=== PATIENT | male | born 1955 | race Caucasian/White ===

== ENCOUNTER → 2018-11-20 | Day surgery (SDC) | payer OTHER ==
[~2018-11-20] MED LIST: ACCUNEB SO1.25 MG/1 INH; CELEXA40 MG PO; COMBIVENT INH; COUMADIN 5 MG TA5 M1 PO; COUMADIN7.5 MG PO; DALIRESP500 MCG PO; FLOMAX0.4 MG PO; LIPITOR40 MG PO; LOPRESSOR25 PO; NORCO 5-325 TA1 EACH PO; PREDNISONE 5 MG5 M1 PO; PROAIR HFA8.5 GM INH; SINGULAIR 10 MG10 M1 PO; XANAX 0.5 MG0.5 MG PO
[2018-11-20 09:53] LABS: HEMATOCRIT 40.9 % (42.0-52.0); HEMOGLOBIN 13.8 gm/dL (14.0-18.0); MCH 28.7 pg (26.0-34.0); MCHC 33.7 g/dL (28.0-37.0); MCV 85.1 fL (80.0-100.0); MPV 7.7 fl. (7.2-11.1); RBC 4.8 mil/uL (4.50-6.00); RDW-CV 14.6 % (10.5-14.5); WBC 8.3 thou/uL (4.0-11.0)
[2018-11-20 10:00] LABS: CREATININE 0.6 mg/dL (0.6-1.3); POTASSIUM 3.9 mmol/L (3.5-5.1)
[2018-11-20 10:06] LABS: ALBUMIN 3.8 g/dL (3.4-5.0); TOTAL BILIRUBIN 0.7 mg/dL (<0.1-1.0); TOTAL PROTEIN 6.6 g/dL (6.4-8.2)
--- NOTE | 2018-11-20 16:17 | EKG ---
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 : 1955 Requested By: Yanick Livingston Order Number: [id number] Micha MD: Federico Best Measurements Intervals [place] Rate: 87 P: 2 CO: 103 QRS: 26 QRSD: 116 T: 71 QT: 394 QTc: 474 Interpretive Statements Sinus rhythm Ventricular premature complex Short CO interval Delayed R-wave progression Nonspecific intraventricular conduction delay Borderline low voltage, extremity leads No previous ECG available for comparison Electronically Signed On 11-20-2018 16:17:44 CDT by Federico Best [email or web address] <ELECTRONICALLY SIGNED> By: Federico Best MD, [facility] 11/20/18 1617 7 Federico Best MD, FACC /EPI
--- NOTE | 2018-11-21 18:06 | PATH ---
[address] [address] PATHOLOGY RPT PROCEDURE Name: GAB MORENO Room: [facility]#: [id number] Admission: 11/20/18 Date of : 59 Discharge: Report #: [id number] Path Case #: [id number] [facility] Accession Number: [id number] . 01 Material submitted: . PART A: cecum - CECAL POLYP PART B: colon - PROXIMAL TRANSVERSE COLON POLYP. Modifiers: proximal, transverse . 01 Clinical history: . Positive fecal occult blood test . 02 Diagnosis: A. Cecal polyp: - Tubular adenoma, negative for high-grade dysplasia. . B. Proximal transverse colon polyp: - Fragmented large tubular adenoma, negative for high-grade dysplasia. (TURNER:pit; 11/21/2018) QTP 11/21/2018 1513 Local . 02 Electronically signed: . Aubrey Ashley MD, Pathologist NPI- [id number] . 01 Gross description: . A. Received in formalin labeled "Gab Moreno, cecal polyp," are 2 segments of gomez soft tissue measuring 0.5 x 0.2 x 0.1 cm in aggregate dimensions and ranging from 0.2 to 0.3 cm in maximum dimension. The specimen is submitted entirely in cassette A1. . B. Received in formalin labeled "Gab Moreno, proximal transverse colon polyp," is a 2.5 x 2.4 x 1.5 cm polypoid piece of gomez soft tissue. The margin is inked and the tissue is sectioned perpendicular to the margin and submitted entirely in cassettes B1-B5. Additionally received in the same container is a 1.6 x 1.6 x 1.5 cm polypoid piece of gomez soft tissue. The margin is inked and the tissue is sectioned perpendicular to the margin and entirely submitted in cassettes B6-B8. Also received in the container is a 2.0 x 1.1 x 1.3 cm polypoid piece of gomez soft tissue. The presumed margin is inked and the specimen is sectioned perpendicular to the margin and entirely submitted in cassettes B9-B11. (TSD; 11/20/2018) TOB/TOB 11/21/2018 [facility]2 Local . 02 Pathologist provided ICD-10: D12.0, D12.3 . 02 [facility] [place] [address] PATHOLOGY RPT PROCEDURE Name: GAB MORENO Room: [facility]#: [id number] Admission: 11/20/18 Date of : 59 Discharge: Report #: [id number] Path Case #: [id number] Specimen Comment: A courtesy copy of this report has been sent to Specimen Comment: [phone], . Specimen Comment: Report sent to / DR HERNÁNDEZ Performed at: [address], [place], [place] [id number] MD Mack Hernandez MD Phone: [phone] Performed at: 02 [facility] [address], [place], [place] [id number] MD Aubrey Ashley MD Phone: [phone]
[2018-11-22 02:06] LABS: HEPATITIS B SURFACE AG Negative (Negative)
== END | disposition home or self-care (01) ==
LOC: M.SUR 07:31
PROVIDERS: Anesthesiology; Internal Medicine Gastroenterology
DX: Z12.11 Encounter for screening for malignant neoplasm of colon (principal); D12.0 Benign neoplasm of cecum; D12.3 Benign neoplasm of transverse colon; K57.30 Diverticulosis of large intestine without perforation or abscess without bleeding; K64.4 Residual hemorrhoidal skin tags; B17.9 Acute viral hepatitis, unspecified; J44.9 Chronic obstructive pulmonary disease, unspecified; E11.9 Type 2 diabetes mellitus without complications; Z79.899 Other long term (current) drug therapy; Z79.01 Long term (current) use of anticoagulants

== ENCOUNTER 2018-12-01 13:34 | Inpatient (IN) | payer OTHER ==
[~2018-12-01] VITALS: Ht 175.3 cm; Wt 78.1 kg
--- NOTE | ~2018-12-01 | PROC ---
[address] [address] PROCEDURE REPORT Name: JASPER TAPIA Room: [address] IN ..#: [id number] Admission: 12/01/18 Attend Phys: Seble Whitfield MD Discharge: 12/03/18 Date of : 59 Report #: [id number] THIS REPORT FOR: //name// For GI report, please see the Provation report in Perceptive 7 content. By: 1048Medical Records Staff DIANA /DAGO
[2018-12-01 13:43] VITALS: BP 112/70
[2018-12-01 14:18] LABS: HEMATOCRIT 37.4 % (42.0-52.0); HEMOGLOBIN 12.6 gm/dL (14.0-18.0); MCH 29.1 pg (26.0-34.0); MCHC 33.8 g/dL (28.0-37.0); MCV 86.2 fL (80.0-100.0); MPV 7.9 fl. (7.2-11.1); NUCLEATED RBCS 0 /100WBC; PLATELET COUNT* 381 thou/uL (150-400); RBC 4.34 mil/uL (4.50-6.00); RDW-CV 14.8 % (10.5-14.5); WBC 10.8 thou/uL (4.0-11.0)
[2018-12-01 14:29] LABS: CREATININE 0.7 mg/dL (0.6-1.3)
[2018-12-01 14:30] LABS: APTT 40.9 Seconds (25.0-31.3); INR 3.2; PROTIME 31.2 Seconds (9.20-11.50)
[2018-12-01 14:33] LABS: ALBUMIN 3.6 g/dL (3.4-5.0); TOTAL BILIRUBIN 0.3 mg/dL (<0.1-1.0); TOTAL PROTEIN 6.1 g/dL (6.4-8.2)
[2018-12-01 14:43] LABS: ABSOLUTE BASOPHILS 0.1 thou/uL (0.0-0.2); ABSOLUTE LYMPHOCYTES 0.5 thou/uL (0.8-5.3); ABSOLUTE NEUTROPHILS 10.2 thou/uL (1.6-8.1)
[2018-12-01 14:44] LABS: PLATELET ESTIMATE ADEQUATE
--- NOTE | 2018-12-01 16:29 | EKG ---
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: [facility] : 1955 Requested By: Patricia Kruse Order Number: [id number] MD: Charlie Grover Measurements Intervals [place] Rate: 80 P: 74 WI: 136 QRS: 48 QRSD: 91 T: 89 QT: 448 QTc: 517 Interpretive Statements Sinus rhythm Nonspecific T abnrm, anterolateral leads Prolonged QT interval Compared to ECG 11/20/2018 09:58:11 Prolonged QT interval now present Ventricular premature complex(es) no longer present Short WI interval no longer present Intraventricular conduction delay no longer present Electronically Signed On 12-01-2018 16:28:52 CDT by Charlie Grover [email or web address] <ELECTRONICALLY SIGNED> By: Charlie Grover MD, FACC 12/01/18 1628 1409 1409 Charlie Grovre MD, [facility] /EPI
[2018-12-01 17:42] VITALS: BP 116/69
[2018-12-01] MEDS ORDERED: SINGULAIR 10 MG10 M1 PO (18:17)
[2018-12-01] MEDS ORDERED: BUDESONIDE0.25 MG/2 INH (18:17)
[2018-12-01 18:18] VITALS: BP 155/68
[2018-12-01] MEDS ORDERED: PERFOROMIS20 MCG/2 M INH (18:18)
--- NOTE | 2018-12-01 18:56 | NUR ---
PT ADMITTED TO FLOOR FROM ER.PT A&OX3 VSS. IV NS RUNNING 100 ML/HOUR TO LAC. PT STATES UNDERSTANDING OF CLEAR LIQUID DIET AND NPO STATUS BEGINNING AT MIDNIGHT TONIGHT. PT EDUCATED ON USE OF CALL LIGHT. MEDICATIONS REVIEWED WITH PT AND FAMILY. PT DENIES ANY PAIN AT THIS TIME.
[2018-12-01 19:40] VITALS: BP 128/75
[2018-12-02 05:13] LABS: HEMATOCRIT 29.7 % (42.0-52.0); HEMOGLOBIN 10.1 gm/dL (14.0-18.0); MCH 29.1 pg (26.0-34.0); MCHC 34.1 g/dL (28.0-37.0); MCV 85.3 fL (80.0-100.0); MPV 7.6 fl. (7.2-11.1); RBC 3.48 mil/uL (4.50-6.00); RDW-CV 14.8 % (10.5-14.5); WBC 7.2 thou/uL (4.0-11.0)
[2018-12-02 05:14] LABS: INR 2.9; PROTIME 28.9 Seconds (9.20-11.50)
[2018-12-02 05:24] LABS: CALCIUM 8.2 mg/dL (8.5-10.1); CREATININE 0.6 mg/dL (0.6-1.3); MAGNESIUM 1.9 mg/dL (1.8-2.4); POTASSIUM 3.5 mmol/L (3.5-5.1); TOTAL BILIRUBIN 0.5 mg/dL (<0.1-1.0); TOTAL PROTEIN 4.9 g/dL (6.4-8.2)
--- NOTE | 2018-12-02 05:45 | NUR ---
PT ALERT AND ORIENTED. VSS ON 2L NC. WEARS 2L @ HOME. ASSESSMENT DOCUMENTED. MEDS GIVEN EMAR. UP AD LOWELL. LAC IV WITH NS @100. NPO AFTER MN. GI CONSULT CALLED IN. PT DENIES PAIN, N/V THIS SHIFT. CALL LIGHT WITHIN REACH HOURLY ROUNDINGS MADE. WILL CONTINUE TO MONITOR.
[2018-12-02 07:30] VITALS: BP 128/66
--- NOTE | 2018-12-02 16:47 | NUR ---
Pt lives at home with and is independent with mobility and ADLs. Pt does not use any DME and no known hx of HH or SNF. SW to continue to follow to assist with safe dc planning if needs arise.
--- NOTE | 2018-12-02 18:02 | NUR ---
PT A&OX3 NO C/O PAIN AT THIS TIME, VSS. IV NS DC'D ORDERED. PT RESTS IN ROOM WITH CALL LIGHT IN REACH. PT CONTINUES TO DRINK BOWEL PREP FOR COLONOSCOPY SCHEDULED TOMORROW, PT TOLERATES W/O DIFFICULTY. PT UP AD LOWELL, GAIT STEADY. PT REC'D SCHEDULED BREATHING TX REQUESTED BY PT.
[2018-12-02 20:50] VITALS: BP 116/67
[2018-12-03 05:06] LABS: HEMATOCRIT 29.6 % (42.0-52.0); HEMOGLOBIN 10.2 gm/dL (14.0-18.0); MCH 29.3 pg (26.0-34.0); MCHC 34.5 g/dL (28.0-37.0); MPV 7.8 fl. (7.2-11.1); RBC 3.48 mil/uL (4.50-6.00); RDW-CV 14.7 % (10.5-14.5); WBC 7.7 thou/uL (4.0-11.0)
[2018-12-03 05:08] LABS: PROTIME 19.7 Seconds (9.20-11.50)
--- NOTE | 2018-12-03 05:20 | NUR ---
NO REPORT OF PAIN OR NAUSEA DURING SHIFT. HE WAS ABLE TO CONTINUE BOWEL PREP BUT DID NOT HAVE A BM THIS NIGHT. PLAN IS TO MAKE APPT FOR COLONOSCOPY TODAY.
[2018-12-03 05:23] LABS: CALCIUM 8.3 mg/dL (8.5-10.1); CREATININE 0.6 mg/dL (0.6-1.3); MAGNESIUM 1.8 mg/dL (1.8-2.4); POTASSIUM 3.5 mmol/L (3.5-5.1)
[2018-12-03 07:35] VITALS: BP 149/73
[2018-12-03 07:51] VITALS: BP 149/73
--- NOTE | 2018-12-03 09:10 | NUR ---
PT A&OX3, VSS, NO C/O PAIN. PT DENIES N/V AT THIS TIME. PT BATHED WITH ASSISTANCE FROM SPOUSE PRIOR TO LEAVING FLOOR FOR PROCEDURE. PO METOPROLOL, ALPRAZOLAM AND CITALOPRAM ADMIN ORDERED, WELL IV PANTOPRAZOLE. PRE OP CHECKLIST COMPLETED AND ON PT CHART. 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
[2018-12-03] MEDS ORDERED: COUMADIN7.5 MG PO (10:42)
[2018-12-03] MEDS ORDERED: COUMADIN 5 MG TA5 M1 PO (10:42)
[2018-12-03 11:27] VITALS: BP 149/73
[2018-12-03 11:28] VITALS: BP 135/62
--- NOTE | 2018-12-03 11:42 | NUR ---
PT RETURNED TO UNIT FROM PACU. PT A&OX3 NO C/O PAIN, DENIES N/V. VSS. PT EATING BOX LUNCH AT THIS TIME AND WAITING TO DC TO HOME WITH SPOUSE. PT RESTS IN BED WITH CALL LIGHT IN REACH.
--- NOTE | 2018-12-03 13:21 | NUR ---
PT DC TO HOME. PT STATES UNDERSTANDING OF INSTRUCTIONS FOR MEDICATIONS AND FOLLOW-UP APPOINTMENTS. PT UNDERSTANDS HE IS TO RESUME COUMADIN CLARIFIED WITH DR. Goldsmtih PT IVs DC'D PRIOR TO LEAVING UNIT. NO REDNESS/SWELLING AT SITE. PT ATE BOX LUNCH WITH NO C/O N/V, VSS. PT LEAVES UNIT IN WC WITH SPOUSE ACCOMPANYING. ALL PERSONAL BELONGINGS WITH PT.
--- NOTE | 2018-12-04 19:17 | CON ---
[address] [address] CONSULTATION Name: JASPER TAPIA Room: [address] IN [facility]#: [id number] Admission: 12/01/18 Attend Phys: Seble Whitfield MD Discharge: 12/03/18 Date of : 59 Report #: [id number] THIS REPORT FOR: //name// CC: Silas Aguiar HISTORY OF PRESENT ILLNESS: This is a pleasant 63-year-old gentleman with past medical history significant for hypertension, aortic valve replacement, on chronic anticoagulation, BPH, hyperlipidemia, and asthma, who is presenting with a post-polypectomy bleed. The patient had a routine surveillance colonoscopy performed on 11/20/[address] Johns. The patient reports he did well after the procedure, but yesterday began noticing a large amount of blood in his stool. The patient reports passing bright red blood and clots in his stool, 2-3 times yesterday. This was followed by one large bowel movement last evening. The patient has not had any bowel movements since then. He does report abdominal cramps. Prior to passing stools, but has no abdominal pain at this time. The patient denies fevers, chills, hematemesis. The patient reports that he was taking his Coumadin as directed, but his INR appears to be elevated on admission. PAST MEDICAL HISTORY: Significant for hypertension, hyperlipidemia, aortic valve disease, asthma. PAST SURGICAL HISTORY: The patient had aortic valve replacement in 1992, appendectomy in the remote past. SOCIAL HISTORY: The patient quit smoking about 30 years back. Denies any significant alcohol or recreational drug use. FAMILY HISTORY: Negative for colon cancer or Dun[place] related neoplasia. REVIEW OF SYSTEMS: Negative except for what was mentioned in the HPI. PHYSICAL EXAMINATION: VITAL SIGNS: Temperature 36.9, pulse rate 77, blood pressure 128/66, pulse ox 96% on 2 liters. GENERAL: The patient is alert, awake, oriented x 3. HEENT: Pupils are equal, round, reactive to light and accommodation. Mucous membranes are moist. There is no congestion. LUNGS: Clear to auscultation bilaterally. CARDIOVASCULAR: Rate and rhythm regular, S1, S2 present. ABDOMEN: Soft. There is no distention, guarding or rigidity. EXTREMITIES: Warm, well perfused. There is no edema. SKIN: Warm and dry. LABORATORY DATA: Hemoglobin on presentation was 12.6, today morning is 10.1. [place] [address] CONSULTATION Name: JASPER TAPIA Room: [address]#: [id number] Admission: 12/01/18 Attend Phys: Seble Whitfield MD Discharge: 12/03/18 Date of : 59 Report #: [id number] Sodium 142, potassium 3.5, chloride 105, bicarbonate 32, BUN 11, creatinine 0.7, total bilirubin 0.5, AST 25, ALT 79, alkaline phosphatase 59. INR was 3.2, on presentation 2.9 today. IMAGING DATA: CT angio of abdomen; no evidence of active contrast extravasation to suggest acute arterial hemorrhage, diffuse hepatic steatosis. ASSESSMENT AND PLAN: This is a 63-year-old gentleman with history outlined above, presenting with post-polypectomy bleed. I would continue to hold his Coumadin today. Keep him on a clear liquid diet today and prep him tonight for colonoscopy tomorrow. Further recommendations will be based on the results of colonoscopy. Thank you for this consultation. <ELECTRONICALLY SIGNED> By: Thong Linares MD 12/04/18 1917 1142 1220Thong Linares MD /nt
== END 2018-12-03 13:30 | disposition home or self-care (01) | DRG 378 ==
LOC: M.ERS 13:34 → M.TBA-ER 17:03 → M.3W 17:03
PROVIDERS: Personal Emergency Response Attendant; ADMIT Internal Medicine
PROC: 0W3P8ZZ Control Bleeding in Gastrointestinal Tract, Via Natural or Artificial Opening Endoscopic (ICD-10-PCS; principal; 2018-12-03)
DX: K92.2 Gastrointestinal hemorrhage, unspecified (principal); K63.3 Ulcer of intestine; D68.59 Other primary thrombophilia; K64.4 Residual hemorrhoidal skin tags; J45.909 Unspecified asthma, uncomplicated; I10 Essential (primary) hypertension; N40.0 Benign prostatic hyperplasia without lower urinary tract symptoms; E78.5 Hyperlipidemia, unspecified; Z87.891 Personal history of nicotine dependence; Z95.2 Presence of prosthetic heart valve; Z90.49 Acquired absence of other specified parts of digestive tract; Z79.01 Long term (current) use of anticoagulants; Z23 Encounter for immunization; Y83.8 Other surgical procedures as the cause of abnormal reaction of the patient, or of later complication, without mention of misadventure at the time of the procedure; Y92.89 Other specified places as the place of occurrence of the external cause

== ENCOUNTER → 2020-09-07 | Day surgery (SDC) | payer OTHER ==
[~2020-09-07] MED LIST changes: +BUDESONIDE0.25 MG/2 INH; +ENOXAPARIN80 MG/0.1 SUBQ; +JANTOVEN5 MG PO; +JANTOVEN7.5 MG PO; +PERFOROMIS20 MCG/2 M INH; +TOPROL XL25 MG PO
[2020-09-07 09:18] LABS: HEMATOCRIT 39.1 % (42.0-52.0); HEMOGLOBIN 12.9 gm/dL (14.0-18.0); MCH 28.1 pg (26.0-34.0); MCHC 33.1 g/dL (28.0-37.0); MCV 84.9 fL (80.0-100.0); MPV 7.7 fl. (7.2-11.1); RBC 4.61 mil/uL (4.50-6.00); RDW-CV 15.4 % (10.5-14.5); WBC 11.3 thou/uL (4.0-11.0)
[2020-09-07 09:26] LABS: CREATININE 0.8 mg/dL (0.6-1.3); POTASSIUM 3.6 mmol/L (3.5-5.1)
[2020-09-07 09:33] LABS: CALCIUM 9.5 mg/dL (8.5-10.1)
--- NOTE | 2020-09-09 14:08 | PATH ---
[address] [address] PATHOLOGY RPT PROCEDURE Name: GAB MORENO Room: [facility]#: [id number] Admission: 09/07/20 Date of : 59 Discharge: Report #: [id number] Path Case #: [id number] [facility] Accession Number: [id number] . 01 Material submitted: . rectum - RECTAL POLYP . 01 Clinical history: . COLONOSCOPY HS COLON POLYPS DIVERTICULITIS, RECTAL POLYP, NO FURTHER FINDINGS FROM PREVIOUS . 02 Diagnosis: Rectal polyp: - Hyperplastic polyp. (TURNER:isabel;09/09/2020) [facility] 09/09/2020 1235 Local . 02 Electronically signed: . Aubrey Ashley MD, Pathologist NPI- [id number] . 01 Gross description: . The specimen is received in formalin, labeled "Moreno, Gab, rectal polyp". Received is a single segment of pale gomez tissue measuring 0.4 cm in maximum dimensions. The specimen is submitted entirely in cassette A1. ([facility]; 09/08/2020) NRI/NRI 09/08/2020 1712 Local . 02 Pathologist provided ICD-10: K62.1 . 02 CPT . [id number] Specimen Comment: A courtesy copy of this report has been sent to [phone] Specimen Comment: Report sent to DR. HERNÁNDEZ Specimen Comment: Report sent to Performed at: [address], [place] [id number] MD Shankar Perdomo MD Phone: [phone] Performed at: 02 [facility] [address], [place], [place] [id number] MD Aubrey Ashley MD Phone: [phone]
== END | disposition home or self-care (01) ==
LOC: M.SUR 05:55
PROVIDERS: ATTEND Internal Medicine Gastroenterology
DX: Z09 Encounter for follow-up examination after completed treatment for conditions other than malignant neoplasm (principal); Z86.010 Personal history of colon polyps; K62.1 Rectal polyp; K57.30 Diverticulosis of large intestine without perforation or abscess without bleeding; I10 Essential (primary) hypertension; I48.91 Unspecified atrial fibrillation; I48.92 Unspecified atrial flutter; J44.9 Chronic obstructive pulmonary disease, unspecified; G47.30 Sleep apnea, unspecified; F41.9 Anxiety disorder, unspecified; Z98.890 Other specified postprocedural states; Z79.899 Other long term (current) drug therapy; Z87.891 Personal history of nicotine dependence; Z79.01 Long term (current) use of anticoagulants